=== PATIENT | female | born 1980 | race African-American/Black ===

== ENCOUNTER 2020-06-01 19:16 | Emergency (ER) | payer OTHER ==
[2020-06-01 19:28] VITALS: BP 111/70; PULSE 74; TEMP 98.4; BMI 17.2
[2020-06-01] MEDS ORDERED: AZITHROMYCIN 500 MG TABLET PO ONE (20:33)
[2020-06-01] MEDS ORDERED: AZITHROMYCIN 500 MG TABLET ONE (20:42)
[2020-06-01 21:22] LABS: PH,URINE 5.5 (5.0-8.0); URINE APPEARANCE CLEAR; URINE BILIRUBIN NEGATIVE (NEGATIVE); URINE COLOR YELLOW; URINE GLUCOSE (UA) NEGATIVE (NEGATIVE); URINE KETONE NEGATIVE (NEGATIVE); URINE LEUK ESTERASE NEGATIVE (NEGATIVE); URINE NITRITE NEGATIVE (NEGATIVE); URINE PROTEIN NEGATIVE (NEGATIVE); URINE UROBILINOGEN 0.2 mg/dL (0.2-1.0)
== END 2020-06-01 21:32 | disposition home or self-care (01) ==
LOC: JERFT 19:16
DX: N89.8 Other specified noninflammatory disorders of vagina (principal)
CPT/HCPCS: 36415; 81003; 87086; 87491; 87591; 99284-25